=== PATIENT | male | born 1950 | race Caucasian/White ===

== ENCOUNTER 2017-10-01 11:15 | Day surgery (SDC) | payer OTHER ==
[~2017-10-01] VITALS: Ht 185.4 cm; Wt 107.8 kg
[2017-10-01 12:52] LABS: HEMATOCRIT 40.7 % (38.0-50.0); HEMOGLOBIN 14.2 G/DL (12.5-16.6); MCH 31.1 PG (29.0-34.0); MCHC 34.9 G/DL (30.0-36.0); MCV 89.3 FL (86-99); PLATELET COUNT 148 K/uL (156-360); RBC DIS.WIDTH-CV 12.6 % (11.8-14.6); RBC DIS.WIDTH-SD 41.5 % (39-53); RED BLOOD COUNT 4.56 M/uL (4.00-5.50); WHITE BLOOD COUNT 21.4 K/uL (4.1-10.2)
[2017-10-01 13:01] LABS: ALBUMIN 3.9 g/dL (3.2-4.8); CHLORIDE 102 mEq/L (99-109); POTASSIUM 3.7 mEq/L (3.7-5.4); SODIUM 136 mEq/L (136-147)
[2017-10-01 13:03] LABS: GLUCOSE 164 mg/dL (70-99)
[2017-10-01 13:06] LABS: TOTAL BILIRUBIN 0.9 mg/dL (0.0-1.0)
[2017-10-01 13:07] LABS: ALKALINE PHOSPHATASE 44 IU/L (3-129); CREATININE 1.3 mg/dL (0.6-1.3); GFR ESTIMATE (CALCULATED) 58 mL/min/ (58.99-99999)
[2017-10-01 13:08] LABS: UREA NITROGEN (BUN) 17 mg/dL (9-23)
[2017-10-01 13:09] LABS: AST (GOT) 38 IU/L (2-34)
[2017-10-01 13:10] LABS: ALT (GPT) 41 IU/L (3-49)
[2017-10-01 14:30] LABS: APPEARANCE CLEAR ((CLEAR)); BILIRUBIN NEGATIVE; BLOOD SMALL; COLOR YELLOW ((YELLOW)); GLUCOSE (STRIP) NEGATIVE; KETONES NEGATIVE; LEUKOCYTES NEGATIVE; NITRITE NEGATIVE; PROTEIN (STRIP) NEGATIVE; SPECIFIC GRAVITY 1.014 (1.000-1.030); UROBILINOGEN 0.2 MG/DL (0.2-1.0)
[2017-10-01 14:34] LABS: BACTERIA NONE SEEN /HPF; EPITHELIAL CELLS RARE /HPF; MUCUS TRACE /LPF; RED BLOOD CELLS 0-5 /HPF (0-5); UCUL ADDED? NO; WHITE BLOOD CELLS 0-5 /HPF (0-5)
[2017-10-01] MEDS ORDERED: ALTACE5 MG PO (16:48)
[2017-10-01] MEDS ORDERED: LIPITOR20 MG PO (16:49)
[2017-10-01] MEDS ORDERED: LOW DOSE ASPIRI81 M1 PO ×2 (16:49)
[2017-10-01] MEDS ORDERED: VITAMIN D31000 UNI2 PO (16:50)
[2017-10-01] MEDS ORDERED: FIBER GUMMIES1 EACH PO (16:50)
[2017-10-01 22:01] VITALS: BP 97/60
[2017-10-01 23:10] VITALS: BP 97/58
[2017-10-02 03:42] VITALS: BP 97/62
[2017-10-02 07:02] LABS: BASOPHIL (%) 0.1 % (0-1); EOSINOPHIL (%) 0 % (0-5); HEMATOCRIT 36.4 % (38.0-50.0); IMMATURE GRANULOCYTE (%) 1.2 % (0.0-0.7); LYMPHOCYTE (%) 3.2 % (15-42); LYMPHOCYTE COUNT 0.5 K/uL (1.0-2.8); MONOCYTE (%) 3.9 % (3-12); MONOCYTE COUNT 0.7 K/uL (0-0.8); NEUTROPHIL (%) 91.6 % (45-76); NEUTROPHIL COUNT 15.2 K/uL (1.8-6.4); PLATELET COUNT 127 K/uL (156-360); RBC DIS.WIDTH-CV 12.9 % (11.8-14.6); RBC DIS.WIDTH-SD 43.4 % (39-53); WHITE BLOOD COUNT 16.6 K/uL (4.1-10.2)
[2017-10-02 07:24] LABS: ALBUMIN 3.5 G/DL (3.2-4.8); ALKALINE PHOSPHATASE 33 IU/L (3-129); ALT (GPT) 26 IU/L (3-49); AST (GOT) 23 IU/L (2-34); CHLORIDE 104 MEQ/L (99-109); GFR ESTIMATE (CALCULATED) > 59 mL/min/ (58.99-99999); GLUCOSE 137 mg/dL (70-99); MAGNESIUM 1.9 mg/dl (1.3-2.7); SODIUM 137 MEQ/L (136-147); TOTAL BILIRUBIN 0.7 MG/DL (0.0-1.0); TOTAL PROTEIN 5.3 G/DL (6.4-8.3); UREA NITROGEN (BUN) 19 mg/dL (9-23)
[2017-10-02 07:37] LABS: POTASSIUM 4.9 MEQ/L (3.7-5.4)
[2017-10-02 08:27] VITALS: BP 129/67
[2017-10-02 12:28] VITALS: BP 128/75
== END 2017-10-02 14:40 | disposition home or self-care (01) ==
LOC: EME 11:15 → SDC 18:15 → 2EAST 19:09 → 2SOUTH 19:09 → ENRESERV 19:10 → 2EAST 20:58
PROVIDERS: Surgery
PROC: 0DTJ4ZZ Resection of Appendix, Percutaneous Endoscopic Approach (ICD-10-PCS; principal; 2017-10-01)
DX: K35.80 Unspecified acute appendicitis (principal); I10 Essential (primary) hypertension; E78.5 Hyperlipidemia, unspecified; E86.0 Dehydration; E87.2 Acidosis; Z88.2 Allergy status to sulfonamides; Z87.891 Personal history of nicotine dependence
CPT/HCPCS: 74177; 80053; 81003; 83605; 83735; 84100; 85025; 85027; 87040; 87801; 88304; 93005; 99281; 99285; G0378; J0131; J0330; J1100; J1170; J1650; J1885; J2250; J2405; J2543; J2710; J3010; J7050; J7120